=== PATIENT | female | born 1990 | race Two or more races ===

== ENCOUNTER → 2020-12-17 13:27 | Outpatient (CLI) | payer MEDICAID ==
--- NOTE | ~2020-12-17 | EC ---
PATIENT:STARR YO DATE OF SERVICE: 12/17/20 SEX: F MEDICAL RECORD: [id number] DATE OF : [birth year] [facility] AGE OF PATIENT: 30 ADMISSION DATE: 12/17/20 REFERRING PHYSICIAN: INTERPRETING PHYSICIAN: MORIAH HOLCOMB MD ECHOCARDIOGRAM REPORT ECHO CHARGES 4 ECHO COMPLETE Date: 12/17/20 CLINICAL DIAGNOSIS: TACHYCARDIA/HEART MURMUR ECHOCARDIOGRAPHIC MEASUREMENTS (adult normal given) AC root (d.<3.7cm) 2.9 cm LV Septum d (<1.2 cm> 1.3 cm Valve Excursion 1.5 cm LV Septum (systole) 1.6 cm Left Atria (s.<4.0cm> 3.2 cm LVPW d(<1.2cm) 1.4 cm RV (d.<2.3cm) 2.9 cm LVPW (sytole) 1.6 cm LV diastole(<5.6CM) 4.1 cm MV E-F(>70mm/sec) cm LV systole 2.5 cm LVOT Diameter 1.8 cm MV exc.(>10mm) 1.4 cm Est.ejection fraction (50-75%) % DOPPLER: LVIT cm/sec A 52.0 cm/sec E 73.0 cm/sec LA cm/sec RVSP 35 mmHg LVOT 77 cm/sec AOP1/2T m/s Asc. Ao 121 cm/sec RVOT 79 cm/sec RA cm/sec PA 119 cm/sec AV Gradient Peak 5.12 mmHg AV Mean 2.57 mmHg AV Area 3.4 cm MV Gradient Peak 2.48 mmHg MV Mean 1.00 mmHg MV Area cm COMMENTS: Design Checker: 2 GLORIA HARRISON Employment Manager: 3 Dr. Estrella TAPE# PACS Pericardial Effusion N DATE OF SERVICE: Adequate 2D, color-flow imaging, spectral Doppler, and M-Mode Mild LVH. LV internal dimension is normal. Wall motion is normal. EF is greater than or equal to 55%. Aortic valve is tricuspid. No evidence of stenosis by Doppler interrogation. Left atrium is normal. Mitral valve shows no prolapse. Trace MR. Right-sided chambers are grossly normal. Trace TR. TRANSINT:[id number] Voice Confirmation ID: [id number] DOCUMENT ID: [id number] ECHOCARDIOGRAM REPORT [id number] YOSTARR HUYNH GREGORY A MD CC: [id number] DICTATION DATE: 12/18/20918 FUR BUYER: 12/18/20 1344 [facility] CLI 12/17/20 [id number] [place] [address]
--- NOTE | ~2020-12-17 | ST ---
PATIENT:STARR YO MEDICAL RECORD: [id number] SEX: F LOCATION:[facility] ORDER #: ADMISSION DATE: 12/17/20 AGE OF PATIENT: 30 REFERRING PHYSICIAN: INTERPRETING PHYSICIAN: MORIAH HOLCOMB MD DATE OF SERVICE: 12/17/2020 TREADMILL STRESS TEST. FINDINGS: Baseline ECG is normal. Exercised for 6 minutes on Jay protocol. Maximum heart rate of 184 beats per minute, greater than 85% max predicted. No ECG changes of ischemia. No symptoms of ischemia. Test terminated due to lightheadedness and fatigue. No arrhythmias noted. IMPRESSION: Negative treadmill stress test with poor exercise tolerance. 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
== END | disposition home or self-care (01) ==
LOC: D.HCCARDIO 13:27
PROVIDERS: ATTEND Internal Medicine Interventional Cardiology
DX: R07.89 Other chest pain (principal)